=== PATIENT | male | born 1980 | race Caucasian/White ===

== ENCOUNTER 2020-09-29 09:07 | Outpatient (CLI) | payer OTHER | END 2020-09-29 09:12 | disposition home or self-care (01) | LOC: EDBD 09:07 → LAB 09:07 → EDSEX 09:07 → LAB 09:12 | DX: E83.52 Hypercalcemia (principal); Z87.442 Personal history of urinary calculi ==

== ENCOUNTER → 2020-10-02 09:45 | Outpatient (CLI) | payer OTHER | END | disposition home or self-care (01) | LOC: LAB 09:45 | PROVIDERS: ATTEND Internal Medicine Cardiovascular Disease | DX: E83.52 Hypercalcemia (principal); Z87.442 Personal history of urinary calculi ==

== ENCOUNTER 2020-10-20 13:05 | Outpatient (CLI) | payer OTHER | END 2020-10-20 13:29 | disposition home or self-care (01) | LOC: NUCLEAR 13:05 | PROVIDERS: ATTEND Internal Medicine Cardiovascular Disease | DX: R16.1 Splenomegaly, not elsewhere classified (principal) | CPT/HCPCS: 78215; A9541 ==

== ENCOUNTER → 2021-02-02 12:34 | Outpatient (CLI) | payer OTHER | END | disposition home or self-care (01) | LOC: LAB 12:34 | PROVIDERS: ATTEND Internal Medicine Cardiovascular Disease | DX: E78.2 Mixed hyperlipidemia (principal); I10 Essential (primary) hypertension ==